=== PATIENT | female | born 1955 | race Caucasian/White ===

== ENCOUNTER → 2023-12-19 09:48 | Outpatient (REF) | payer OTHER, SELFPAY | LOC: HWRAD 09:48 | PROVIDERS: ATTENDING PHYSICIAN Family Medicine | DX: R10.32 Left lower quadrant pain (principal) | CPT/HCPCS: 74177; Q9967 ==

== ENCOUNTER 2024-06-04 11:05 | Emergency (ER) | payer OTHER, SELFPAY ==
[2024-06-04 11:07] VITALS: BP 110/67
--- NOTE | 2024-06-04 11:32 | ED.GENMED ---
History of Present Illness
General
Chief Complaint: Abdominal Symptoms
Source: patient
Time Seen by Provider: 06/04/24 11:12
History of Present Illness
History of Present Illness:
69yoF with a history of hypertension, hyperlipidemia, SVT, and anxiety presenting for evaluation of abdominal pain. She started with pain in her lower abdomen 3 days ago. Pain has been constant and is gradually worsening. Pain is mainly localized to
the suprapubic region and radiates to the RLQ. She also reports some nausea and feels constipated. She had a small bowel movement yesterday. She denies any fevers, chills, vomiting, diarrhea, dysuria. She was seen by her PCP today and was sent to
the ED for a CT scan.
Patient has a history of breast cancer and underwent autologous breast reconstruction in 1998 using the rectus abdominis muscle. She had a fall in December of this year and started to have bleeding from her abdomen. She underwent CT scan which showed a
hematoma. She continued to have intermittent bleeding which was thought to be from a fistula. She has been on intermittent antibiotics over the past few months. She was seen by a plastic surgeon who thought that the mesh from her prior surgery may
be breaking down. The plan was for patient to be on antibiotics (cefadroxil) for 6 weeks and reassess. If not improvement, she may need surgery. She has an appointment scheduled on 06/15/24 with another plastic surgeon for a second opinion.
Phy Exam
General Physical Exam
General Presentation: well appearing and no apparent distress
General age: appears stated age
General Skin: warm and dry
General Habitus: normal
General Mental: alert
ENT Exam
ENT Exam: normocephalic
Pulmonary Exam
Pulmonary Exam: no respiratory distress
Gastrointestinal Exam
Gastrointestinal Exam: soft, non distended and other (+Tenderness to suprapubic and RLQ regions. Abdomen soft, non-distended. No rebound or guarding. )
Neurological Exam
Neurological Exam: alert
Marisela Coma Scale
Eye Opening: Spontaneous
Verbal Response: Oriented
Motor Response: Obeys Commands
GCS Total Score: 15
Skin Exam
Skin Exam: normal color and warm/dry
Psychiatric Exam
Psychiatric Exam: normal mood/affect
Course
Orders/Labs/Results
Orders:
Orders
06/04/24 11:33
CT Abd/pel W Iv And Oral Contr Urgent
Comment:
Reason For Exam: Suprapubic, RLQ pain
Iohexol [Omnipaque] See Protocol PO NOW STA
06/04/24 11:52
Complete Blood Count/With Diff Urgent
Comprehensive Metabolic Panel Urgent
Lipase Urgent
Manual Differential Urgent
06/04/24 11:53
Urinalysis Reflex To Culture Urgent
Date Specimen was Collected: 06/04/24
Time Specimen was Collected: 11:51
Abnormal Lab Results
06/04/24
11:52
Hct 36.5 L %
(37.0-47.0)
Monocytes (Manual) 11 H %
(2-9)
Glucose 105 H mg/dl
(70-99)
06/04/24 11:52
06/04/24 11:52
Vital Signs
Initial and Last Documented VS:
Initial Vital Signs
Temp Pulse Resp BP Pulse Ox
98.2 F 79 16 110/67 98
06/04/24 11:07 06/04/24 11:07 06/04/24 11:07 06/04/24 11:07 06/04/24 11:07
Last Documented Vital Signs
Temp Pulse Resp BP Pulse Ox
98.2 F 74 12 133/78 99
06/04/24 11:07 06/04/24 15:28 06/04/24 15:28 06/04/24 15:28 06/04/24 15:28
MDM/Problems Addressed
Differential Diagnosis Includes:
69yoF here with lower abd pain x 3 days. Sent here by PCP for a CT scan. Currently on abx x 6 weeks for a possible abdominal fistula. She is afebrile and hemodynamically stable. She is well-appearing in no acute distress. No signs of peritonitis
on abdominal exam. Differential diagnosis includes but is not limited to: Appendicitis, colitis, diverticulitis, UTI, nonspecific abdominal pain
Initial ED plan: Check abdominal labs, UA, and CT abdomen with IV/PO contrast.
*Critical Care Note
Total Time (30-74mins, 75-104mins- exclusive of procedures): Not Applicable
Update Note
Update Note:
Labs overall unremarkable including normal white count, renal function, and LFTs. UA bland without signs of infection. CT abdomen shows mild mesenteric inflammatory changes adjacent to the sigmoid colon, may be related to mild diverticulitis or
sigmoid colitis. Patient already on a 6-week course of cefadroxil. Will add on Flagyl for anaerobic coverage. Supportive care discussed including clear liquid diet. She was advised to follow-up closely with her PCP. Strict ED return precautions
discussed including severe pain and fevers. She expressed understanding and is agreeable to plan. She was discharged in stable condition.
ED Attending Note
-
Portions of this chart may have been created with voice recognition software.� Occasional wrong word or��sound alike� substitutions may have occurred due to the inherent limitations of voice recognition software.
Discharge Plan
Departure
Patient Disposition: Home (Routine Discharge)
Date of Disposition: 06/04/24
Time of Disposition: 15:12
Patient with high blood pressure during this ER visit?: No
Discharge Problem:
Acute diverticulitis
Instructions: Diverticulitis (DC)
Prescriptions:
New
metronidazole 500 mg tablet
500 mg PO Q8H Qty: 30 0RF
Referrals:
Jared Moore MD [Family Provider] -
Activity Restrictions/Additional Instructions:
Take Flagyl as prescribed. Do not drink alcohol while on this antibiotic. Eat a clear liquid diet until pain improves.
Please follow-up with your family doctor next week. Return to the ER with any worsening symptoms, severe pain, fevers.
Interventions
Interventions:
*Risk Screen - Suicide Last Done: 06/04/24 11:07
*General Assessment Last Done: 06/04/24 11:45
*Neglect/Abuse Screening Last Done: 06/04/24 11:07
ED- Fall Risk Assessment Last Done: 06/04/24 11:45
*Nursing Disposition Last Done: 06/04/24 15:28
SG-Xmltfj-Afxxpvdndc Assessment Last Done: 06/04/24 11:45
Discharge Date and Time
Discharge Date/Time: 06/04/24 15:32
Print Language: NIUEAN
[2024-06-04] MEDS: OMNIPAQUE 50 ML PO (11:45)
[2024-06-04 12:00] VITALS: BP 115/67
[2024-06-04 12:05] LABS: Urine Albumin Negative (Neg - Trace); Urine Bilirubin Negative (Negative); Urine Character Clear (Clear); Urine Color Yellow; Urine Glucose Negative (Negative); Urine Ketone Negative (Negative); Urine Leukocyte Negative (Negative); Urine Nitrite Negative (Negative); Urine Occult Blood Negative (Negative); Urine Specific Gravity 1.015 (<1.030); Urine Urobilinogen Negative (Neg - 1+)
[2024-06-04 12:16] LABS: Hematocrit 36.5 % (37.0-47.0); Hemoglobin 12.6 g/dL (12.0-16.0); Mean Corp Hgb Conc. 34.5 g/dL (33.0-37.0); Mean Corpuscular Hgb 29.5 pg (27.0-31.0); Mean Corpuscular Volume 85.5 fL (81.0-99.0); Mean Platelet Volume 9.4 fL (7.4-10.4); Platelet Count 207 10^3/uL (130-400); Red Blood Cell Count 4.27 10^6/uL (4.20-5.40); Red Cell Dist. Width 12.3 % (11.5-14.5); White Blood Cell Count 6.6 10^3/uL (4.8-10.8)
[2024-06-04 12:47] LABS: ALT (SGPT) 21 U/L (0-35); AST (SGOT) 22 U/L (14-36); Albumin 4.2 g/dl (3.5-5.0); Alkaline Phosphatase 93 U/L (38-126); Blood Urea Nitrogen 16 mg/dl (7-17); Calcium 9.1 mg/dl (8.4-10.2); Carbon Dioxide 23 mmol/L (22-30); Chloride 104 mmol/L (98-107); Glucose 105 mg/dl (70-99); Lipase 65 U/L (23-300); Potassium 4.4 mmol/L (3.5-5.1); Sodium 139 mmol/L (135-145); Total Bilirubin 0.2 mg/dl (0.2-1.3); Total Protein 6.7 g/dl (6.3-8.2); eGFR > 60.00
[2024-06-04 12:50] LABS: Atypical Lymphocytes 6 %; Band Neutrophils 2 % (0-3); Lymphocytes 21 % (20-51); Monocytes 11 % (2-9); Segmented Neutrophils 60 % (42-75)
[2024-06-04 12:51] LABS: Normal RBC Morphology Yes; Platelets Checked Yes; Total Cells Counted 100
[2024-06-04 14:35] VITALS: BP 120/74
[2024-06-04 15:28] VITALS: BP 133/78
== END 2024-06-04 15:32 | disposition home or self-care (01) ==
LOC: EMR 11:05
PROVIDERS: Physician Assistant; EMERGENCY PHYSICIAN Emergency Medicine; FAMILY PHYSICIAN Family Medicine
DX: K57.32 Diverticulitis of large intestine without perforation or abscess without bleeding (principal); I10 Essential (primary) hypertension; E78.5 Hyperlipidemia, unspecified; I47.10 Supraventricular tachycardia, unspecified; F41.9 Anxiety disorder, unspecified; Z85.3 Personal history of malignant neoplasm of breast
CPT/HCPCS: 99284; 74177; 80053; 81003; 83690; 85025; Q9967

== ENCOUNTER 2024-06-06 20:11 | Emergency (ER) | payer OTHER, SELFPAY ==
[2024-06-06 20:15] VITALS: BP 146/90
[2024-06-06 20:51] VITALS: BMI 30.2
[2024-06-06 20:52] VITALS: BP 122/54
--- NOTE | 2024-06-06 21:51 | ED.GENMED ---
History of Present Illness
General
Chief Complaint: Allergic Reaction
Source: patient
Exam Limitations: none
Time Seen by Provider: 06/06/24 20:43
History of Present Illness
History of Present Illness:
Patient with a itchy rash to both legs. Started in the last 24 hours. Started Flagyl for presumed diverticulitis. Has been on a cephalosporin prolonged for a mesh abdominal wall issue. No shortness of breath no trouble breathing or swallowing.
Had some chest tightness but she felt this was low related to her anxiety.
Past History
Past History
ED Past Medical History: Arrthythmia and HTN
ED Past Surgical History: and Gynecological
Review of Systems
Review of Systems
All Other Systems: Not applicable
Constitutional: Denies fever or chills
ABD/GI: Denies abdominal pain
Phy Exam
Physical Exam
Physical Exam:
GENERAL: Alert and oriented in no apparent distress
EYE: Orbits normal.
NECK: Supple, no significant adenopathy.
ENT: Pharynx without erythema airway clear
CARDIAC: Regular rate and rhythm without any obvious murmurs.
LUNGS: Clear breath sounds,normal
ABDOMEN: Soft, without focal tenderness or distention
NEUROLOGICAL: Alert and oriented , grossly non-focal
SKIN: Warm and dry, mild maculopapular rash to the lower extremities. No petechia or purpura
MUSCULOSKELETAL: No edema,no deformity.Good color
PSYCH: Normal and appropriate interaction.
Course
Orders/Labs/Results
Orders:
Orders
06/06/24 20:27
Electrocardiogram (*1) Urgent
Reason for Study: Chest Pain
EKG- Treatment ONCE
Vital Signs
Initial and Last Documented VS:
Initial Vital Signs
Temp Pulse Resp BP Pulse Ox
98.4 F 99 18 146/90 97
06/06/24 20:15 06/06/24 20:15 06/06/24 20:15 06/06/24 20:15 06/06/24 20:15
Last Documented Vital Signs
Temp Pulse Resp BP Pulse Ox
99.3 F 88 18 122/54 95
06/06/24 20:52 06/06/24 20:52 06/06/24 20:52 06/06/24 20:52 06/06/24 20:52
MDM/Problems Addressed
Differential Diagnosis Includes:
Patient with a nonspecific likely allergic rash to her legs. Unlikely to be from the cephalosporin. She has been on that for weeks. She did just start the Flagyl. CT scan was reviewed and there is a nonspecific mesenteric inflammation. Her
abdomen is nontender. At this time we will hold Flagyl continue H1 natalie that she takes at home. Add Pepcid. Will hold on steroids. No indication for epinephrine. This slight chest tightness seem to be very anxiety related. EKG is unchanged.
No indication for troponin. Discharged to follow-up
*Pulse Oximetry
Patient hypoxic: no
*EKG
Interpreted by ED Provider?: Yes
Interpretation: abnormal
Comparison EKG: no changes
Heart Rate: 86
Rate: normal
Rhythm: sinus
[place]: normal axis
Interval: normal interval
QRS Pattern: left bundle branch block
Ischemia: non-specific ST changes
*Critical Care Note
Total Time (30-74mins, 75-104mins- exclusive of procedures): Not Applicable
ED Attending Note
-
Portions of this chart may have been created with voice recognition software.� Occasional wrong word or��sound alike� substitutions may have occurred due to the inherent limitations of voice recognition software.
Discharge Plan
Departure
Patient Disposition: Home (Routine Discharge)
Date of Disposition: 06/06/24
Time of Disposition: 21:53
Patient with high blood pressure during this ER visit?: Yes
Discharge Problem:
Hives
Instructions: Hives (DC), BLOOD PRESSURE
Prescriptions:
No Action
metronidazole 500 mg tablet
500 mg PO Q8H Qty: 30 0RF
Referrals:
Jared Moore MD [Family Provider] - Follow up in 2-3 days
Activity Restrictions/Additional Instructions:
Continue taking your Padmaja
Add Pepcid for the next week or so as we discussed
Hold on the Flagyl for now
Return with spreading hives shortness of breath prolonged chest tightness etc.
Also would have to reconsider antibiotics if the abdominal issues recur but for now lets hold off
Interventions
Interventions:
*Risk Screen - Suicide Last Done: 06/06/24 20:15
*General Assessment Last Done: 06/06/24 20:15
*Neglect/Abuse Screening Last Done: 06/06/24 20:15
*ED COVID-19 Vaccine History Last Done: 06/06/24 20:51
ED- Cardiac Assessment Last Done: 06/06/24 20:54
ED- Pulmonary Assessment Last Done: 06/06/24 20:54
ED-Skin Assessment Last Done: 06/06/24 20:54
Discharge Date and Time
Print Language: DIVEHI
[2024-06-06 22:09] VITALS: BP 121/63
[2024-06-06] MEDS: PEPCID 20 MG PO (22:11)
== END 2024-06-06 22:19 | disposition home or self-care (01) ==
LOC: EMR 20:11
PROVIDERS: EMERGENCY PHYSICIAN Emergency Medicine; FAMILY PHYSICIAN Family Medicine
DX: L50.0 Allergic urticaria (principal); I10 Essential (primary) hypertension
CPT/HCPCS: 99283; 93005

== ENCOUNTER 2024-06-10 14:38 | Emergency (ER) | payer OTHER, SELFPAY ==
[2024-06-10] VITALS (8 sets, daily range): BP systolic 95–146; BP diastolic 44–75; BMI 30.2
[2024-06-10 15:20] LABS: % Basophils 0.4 % (0-2); % Eosinophils 0.7 % (0-6); % Immature Granulocytes 0.2 % (0-0.5); % Lymphocytes 34.3 % (20.5-51.1); % Monocytes 11.1 % (1.7-9.3); % Neutrophils 53.3 % (42.2-75.2); Absolute Eosinophils 0.1 10^3/uL (0-0.7); Absolute Lymphocytes 2.8 10^3/uL (1.2-3.4); Absolute Monocytes 0.9 10^3/uL (0.1-0.6); Absolute Neutrophils 4.3 10^3/uL (1.4-6.5); Hematocrit 37.4 % (37.0-47.0); Mean Corp Hgb Conc. 34.8 g/dL (33.0-37.0); Mean Corpuscular Hgb 29.7 pg (27.0-31.0); Mean Corpuscular Volume 85.6 fL (81.0-99.0); Mean Platelet Volume 9.4 fL (7.4-10.4); Nucleated Red Blood Cells % 0 %; Platelet Count 289 10^3/uL (130-400); Red Blood Cell Count 4.37 10^6/uL (4.20-5.40); Red Cell Dist. Width 12.2 % (11.5-14.5)
[2024-06-10 15:32] LABS: ALT (SGPT) 53 U/L (0-35); AST (SGOT) 36 U/L (14-36); Albumin 4.8 g/dl (3.5-5.0); Alkaline Phosphatase 117 U/L (38-126); Blood Urea Nitrogen 20 mg/dl (7-17); Calcium 10.1 mg/dl (8.4-10.2); Carbon Dioxide 25 mmol/L (22-30); Chloride 103 mmol/L (98-107); Glucose 99 mg/dl (70-99); Lipase 83 U/L (23-300); Potassium 4.9 mmol/L (3.5-5.1); Sodium 140 mmol/L (135-145); Total Bilirubin 0.3 mg/dl (0.2-1.3); Total Protein 7.4 g/dl (6.3-8.2)
--- NOTE | 2024-06-10 16:39 | ED.GENMED ---
History of Present Illness
General
Chief Complaint: Rectal Bleeding
Source: patient
Time Seen by Provider: 06/10/24 16:14
History of Present Illness
History of Present Illness:
69-year-old female presents to the emergency room complaining of abdominal discomfort, bloody stool. Patient was seen here about a week ago for abdominal pain. She had a CAT scan which showed some inflammatory changes in the mesentery suggestive
of diverticulitis. Patient has been taking oral cephalosporin for several weeks for his possible mesh infection and therefore Flagyl was added to this regiment. Patient stopped the Flagyl after 5 days due to a rash. Patient felt better for couple
days but then began having more abdominal discomfort, constipation. She did finally have bowel movements and then began having bloody stool. There was little normal stool but mostly blood and mucus. No fever or chills.
Past History
Past History
ED Past Medical History: Arrthythmia and HTN
ED Past Surgical History: and Gynecological
Phy Exam
Physical Exam
Physical Exam:
General: Awake, Alert, Oriented X3. No acute distress.
Vitals: unremarkable
Head: Atraumatic
Eyes: Pupils equal, EOMI
Throat: Airway intact, no exudates
Neck: Trachea midline
Lungs: Clear and equal b/l
Heart: Regular rate, no murmurs
Abd: Soft, bilateral lower quadrant abdominal, No pulsatile mass
Neuro: Nonfocal
Skin: Warm, dry, no rash
Extremities: pulses equal b/l, no edema
Course
Orders/Labs/Results
Orders:
Orders
06/10/24 15:08
Type+Screen Urgent
Complete Blood Count/With Diff Urgent
06/10/24 15:09
Comprehensive Metabolic Panel Urgent
Lipase Urgent
06/10/24 16:38
0.9% Sodium Chloride 1000 ml [Nss] 1,000 ml IV BOLUS
06/10/24 16:39
CT Abd/pelvis W Iv Cont Urgent
Comment:
Reason For Exam: increasing pain, bloody stool
06/10/24 16:53
ABO2 Urgent
BBK Wristband Number:
Associate notified that ABO2 has been ordered: [id number]
Date: 06/10/24
Time: 15:26
Medical Office Worker ID: [id number]
Abnormal Lab Results
06/10/24 06/10/24
15:08 15:09
Absolute Monos (auto) 0.9 H 10^3/uL
(0.1-0.6)
Monocytes % 11.1 H %
(1.7-9.3)
BUN 20 H mg/dl
(7-17)
Creatinine 1.2 H mg/dL
(0.6-1.0)
ALT 53 H U/L
(0-35)
06/10/24 15:08
06/10/24 15:09
Vital Signs
Initial and Last Documented VS:
Initial Vital Signs
Temp Pulse Resp BP Pulse Ox
98.2 F 70 16 100/75 98
06/10/24 14:48 06/10/24 14:48 06/10/24 14:48 06/10/24 14:48 06/10/24 14:48
Last Documented Vital Signs
Temp Pulse Resp BP Pulse Ox
98.2 F 75 19 129/45 97
06/10/24 14:48 06/10/24 20:45 06/10/24 20:45 06/10/24 20:00 06/10/24 20:15
MDM/Problems Addressed
Differential Diagnosis Includes:
Diverticular bleeding, AVM, colitis, anal fissure or hemorrhoid
MDM/Problems Addressed:
Patient's presentation is of couple episodes of bloody stool. Her abdominal exam is benign. Labs are reassuring. Given her recent ER visit for diverticulitis or colitis repeat imaging was obtained. Changes have improved and certainly have not
progressed. Suspect the blood is from some colonic irritation. She did not have any bloody bowel movements after several hours here in the emergency room. Hemoglobin is unchanged. Patient stable for discharge home. Recommend GI follow-up.
Continue brat diet.
*Radiology
Radiology exam reviewed: radiology read reviewed
*Pulse Oximetry
Patient hypoxic: no
*Critical Care Note
Total Time (30-74mins, 75-104mins- exclusive of procedures): Not Applicable
ED Attending Note
-
Portions of this chart may have been created with voice recognition software.� Occasional wrong word or��sound alike� substitutions may have occurred due to the inherent limitations of voice recognition software.
Discharge Plan
Departure
Patient Disposition: Home (Routine Discharge)
Date of Disposition: 06/10/24
Time of Disposition: 20:44
Patient with high blood pressure during this ER visit?: Yes
Condition: Good
Discharge Problem:
Colitis, Bloody stool
Instructions: Bloody Stools, Adult (DC)
Prescriptions:
No Action
acetaminophen [Tylenol] 325 mg Tablet
650 mg PO Q6HPRN PRN (Reason: mild pain)
atorvastatin 10 mg Tablet
10 mg PO HS
diltiazem HCl 240 mg Capsule,Extended Release 24 Hr
240 mg PO DAILY
fexofenadine [Padmaja] 180 mg Tablet
180 mg PO HS
cefadroxil 500 mg Capsule
500 mg PO BID
levothyroxine 125 mcg Tablet
125 mcg PO DAILY
lisinopril 10 mg Tablet
10 mg PO HS
docusate sodium [Colace] 100 mg Capsule
100 mg PO HSPRN PRN (Reason: constipation)
montelukast 10 mg Tablet
10 mg PO HS
lorazepam 1 mg Tablet
1 mg PO HS
lorazepam 1 mg Tablet
1 mg PO BIDPRN PRN (Reason: panic attack)
escitalopram oxalate 10 mg Tablet
10 mg PO DAILY
Rx Instructions:
take with 5mg for total of 15mg
bupropion HCl 300 mg Tablet Extended Release 24 Hr
300 mg PO DAILY
Rx Instructions:
take with 150mg tab for total of 450mg
bupropion HCl 150 mg Tablet Extended Release 24 Hr
150 mg PO DAILY
Rx Instructions:
take with 300mg for total of 450mg
escitalopram oxalate 5 mg Tablet
5 mg PO DAILY
Rx Instructions:
take with 10mg for total of 15mg
Align 4 mg Capsule
4 mg PO HS
bepotastine besilate 1.5 % Drops
1 drp BOTH EYES BIDPRN PRN (Reason: allergies)
cholecalciferol (vitamin D3) [Vitamin D3] 25 mcg (1,000 unit) Tablet,Chewable
25 mcg PO HS
Referrals:
Kaveh Simon MD [Active] -
Jared Moore MD [Family Provider] -
Activity Restrictions/Additional Instructions:
I believe the bloody stools you passed were related to the inflammation of your colon. Continue taking the antibiotic you are taking but I do not believe we should add anything else to the mix. Stay on a brat diet for the next 24 to 48 hours and
then you can advance your diet. Return if you have any increase in the amount of blood you are passing. Follow-up with gastroenterology either at [facility] or call our GI doctors here whose number I have provided on these discharge instructions
Interventions
Interventions:
*Risk Screen - Suicide Last Done: 06/10/24 14:48
*General Assessment Last Done: 06/10/24 14:48
*Neglect/Abuse Screening Last Done: 06/10/24 14:48
*ED COVID-19 Vaccine History Last Done: 06/10/24 14:48
*Nursing Disposition Last Done: 06/10/24 21:20
PG-Hgqasf-Mthksxneye Assessment Last Done: 11/27/24 17:32
ED- Cardiac Assessment Last Done: 06/10/24 17:32
ED- Pulmonary Assessment Last Done: 06/10/24 17:32
Discharge Date and Time
Discharge Date/Time: 06/10/24 21:21
Print Language: DIVEHI
[2024-06-10] MEDS: NSS 1000 IV (17:27)
== END 2024-06-10 21:21 | disposition home or self-care (01) ==
LOC: EMR 14:38
PROVIDERS: Emergency Medicine; EMERGENCY PHYSICIAN Emergency Medicine; FAMILY PHYSICIAN Family Medicine
DX: K52.9 Noninfective gastroenteritis and colitis, unspecified (principal); I10 Essential (primary) hypertension
CPT/HCPCS: 99284; 74177; 80053; 83690; 85025; 86850; 86900; 86901; Q9967

== ENCOUNTER → 2024-07-22 11:14 | Outpatient (REF) | payer OTHER, SELFPAY | LOC: DHCBC/DCA 11:14 | PROVIDERS: ATTENDING PHYSICIAN Nurse Practitioner; FAMILY PHYSICIAN Family Medicine | DX: R06.02 Shortness of breath (principal); R07.89 Other chest pain | CPT/HCPCS: 78452; 93017; A9500; J2785 ==

== ENCOUNTER → 2024-07-24 07:18 | Outpatient (REF) | payer OTHER, SELFPAY | LOC: HWRCS 07:18 | PROVIDERS: ATTENDING PHYSICIAN Nurse Practitioner; FAMILY PHYSICIAN Family Medicine | DX: R06.02 Shortness of breath (principal); R07.89 Other chest pain | CPT/HCPCS: 93306 ==

== ENCOUNTER 2024-08-07 01:19 | Emergency (ER) | payer OTHER, SELFPAY ==
[2024-08-07 01:25] VITALS: BP 175/75
[2024-08-07 02:00] LABS: % Basophils 0.5 % (0-2); % Eosinophils 3.2 % (0-6); % Immature Granulocytes 0.4 % (0-0.5); % Lymphocytes 17.3 % (20.5-51.1); % Monocytes 7.5 % (1.7-9.3); % Neutrophils 71.1 % (42.2-75.2); Absolute Basophils 0.1 10^3/uL (0-0.2); Absolute Eosinophils 0.5 10^3/uL (0-0.7); Absolute Immature Granulocytes 0.1 10^3/uL (0-0.05); Absolute Lymphocytes 2.4 10^3/uL (1.2-3.4); Absolute Monocytes 1.1 10^3/uL (0.1-0.6); Absolute Neutrophils 9.9 10^3/uL (1.4-6.5); Hematocrit 37.3 % (37.0-47.0); Hemoglobin 12.9 g/dL (12.0-16.0); Mean Corp Hgb Conc. 34.6 g/dL (33.0-37.0); Mean Corpuscular Hgb 29.3 pg (27.0-31.0); Mean Corpuscular Volume 84.8 fL (81.0-99.0); Mean Platelet Volume 8.9 fL (7.4-10.4); Nucleated Red Blood Cells % 0 %; Platelet Count 320 10^3/uL (130-400); Red Cell Dist. Width 12.1 % (11.5-14.5)
[2024-08-07 02:11] LABS: ALT (SGPT) 20 U/L (0-35); AST (SGOT) 23 U/L (14-36); Albumin 4.5 g/dl (3.5-5.0); Alkaline Phosphatase 109 U/L (38-126); Blood Urea Nitrogen 26 mg/dl (7-17); Calcium 9.6 mg/dl (8.4-10.2); Carbon Dioxide 19 mmol/L (22-30); Chloride 102 mmol/L (98-107); Glucose 134 mg/dl (70-99); Potassium 4.9 mmol/L (3.5-5.1); Sodium 135 mmol/L (135-145); Total Bilirubin 0.2 mg/dl (0.2-1.3); Total Protein 7.1 g/dl (6.3-8.2); eGFR 54.39
[2024-08-07 02:23] LABS: Troponin I < 0.012 ng/ml
[2024-08-07 04:53] VITALS: BMI 29.6
[2024-08-07 04:58] VITALS: BP 127/63
[2024-08-07 06:00] VITALS: BP 110/55
--- NOTE | 2024-08-07 06:16 | ED.GENMED ---
History of Present Illness
General
Chief Complaint: Blood Pressure Problem
Source: patient
Time Seen by Provider: 08/07/24 06:01
History of Present Illness
History of Present Illness:
69-year-old female presents to the emergency room complaining of fatigue and malaise as well as having some pain in her left arm last night. 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
a mastectomy and TRAM flap reconstruction. Patient states she was concerned that she could have 'a clot in her arm' or that her blood pressure was too high. The pain has resolved at the time of my evaluation. Patient denies any shortness of
breath, chest pain or chest pain with deep inspiration. She was able to ambulate the length of the hospital without shortness of breath. Patient states that her appetite has been decreased since the surgery. She has some lower abdominal pain but
has been able to stop oxycodone. She is only taking Tylenol for pain. No fever or chills.
Past History
Past History
ED Past Medical History: Arrthythmia and HTN
ED Past Surgical History: and Gynecological
Phy Exam
Physical Exam
Physical Exam:
General: Awake, Alert, Oriented X3. No acute distress.
Vitals: Moderately hypertensive on arrival but blood pressure has normalized
Head: Atraumatic
Eyes: Pupils equal, EOMI
Throat: Airway intact, no exudates
Neck: Trachea midline
Lungs: Clear and equal b/l
Heart: Regular rate, no murmurs
Abd: Soft, no upper abdominal tenderness, some tenderness at the surgical site, no pulsatile mass
Neuro: Nonfocal
Skin: Warm, dry, no rash
Extremities: pulses equal b/l, no edema
Course
Orders/Labs/Results
Orders:
Orders
08/07/24 01:30
EKG [Electrocardiogram (*1)] Urgent
Reason for Study: Chest Pain
Other Reason for Exam: no chest pain, + l arm pain
EKG- Treatment ONCE
08/07/24 01:45
Complete Blood Count/With Diff Urgent
Comprehensive Metabolic Panel Urgent
Troponin I Urgent
08/07/24 06:16
CR Chest - 2 Views Urgent
Comment:
Reason For Exam: chest/left arm pain
08/07/24 06:20
0.9% Sodium Chloride 500 ml [Nss] 500 ml IV BOLUS
Abnormal Lab Results
08/07/24
01:45
WBC 14.0 H 10^3/uL
(4.8-10.8)
Abs Immat Gran (auto) 0.1 H 10^3/uL
(0-0.05)
Absolute Neuts (auto) 9.9 H 10^3/uL
(1.4-6.5)
Absolute Monos (auto) 1.1 H 10^3/uL
(0.1-0.6)
Lymphocytes % 17.3 L %
(20.5-51.1)
Carbon Dioxide 19 L mmol/L
(22-30)
BUN 26 H mg/dl
(7-17)
Creatinine 1.1 H mg/dL
(0.6-1.0)
Glucose 134 H mg/dl
(70-99)
08/07/24 01:45
08/07/24 01:45
Vital Signs
Initial and Last Documented VS:
Initial Vital Signs
Temp Pulse Resp BP Pulse Ox
97.8 F 55 16 175/75 97
08/07/24 01:25 08/07/24 01:25 08/07/24 01:25 08/07/24 01:25 08/07/24 01:25
Last Documented Vital Signs
Temp Pulse Resp BP Pulse Ox
97.8 F 71 16 111/48 98
08/07/24 01:25 08/07/24 07:55 08/07/24 08:00 08/07/24 07:55 08/07/24 07:55
MDM/Problems Addressed
Differential Diagnosis Includes:
Congestive heart failure, uncontrolled hypertension, angina
MDM/Problems Addressed:
Patient presents with primary left arm pain and malaise. Though she did have a bit of an elevated pressure on arrival her pressure is normalized. She is asymptomatic at the time of my evaluation. Her labs show a white count of 14,000 which I
think is likely related to her recent surgery. Her chemistries reflect perhaps mild dehydration. Will provide a fluid bolus, instructed her to push the fluids. Her troponin is normal and her discomfort started last evening around 9 PM so I would
expect her to have a positive troponin at this discomfort was cardiac related. In addition the patient a stress test just about a week or 2 ago which did not show evidence for ischemia. My clinical suspicion for DVT or blood clot is extremely low.
She has no arm swelling to suggest an arm DVT. She does not have any clinical features really to suggest a PE as she is not tachycardic, does not have pleuritic chest pain. D-dimer will be helpful because she had recent surgery.
*Pulse Oximetry
Patient hypoxic: no
*EKG
Interpreted by ED Provider?: Yes
Interpretation: normal
Heart Rate: 73
Rate: normal
Rhythm: sinus
QRS Pattern: left bundle branch block
Ischemia: non-specific ST changes
*Coat Presser Interpretation
Rate: normal
Interpretation: normal
Rhythm: sinus
*Critical Care Note
Total Time (30-74mins, 75-104mins- exclusive of procedures): Not Applicable
ED Attending Note
-
Portions of this chart may have been created with voice recognition software.� Occasional wrong word or��sound alike� substitutions may have occurred due to the inherent limitations of voice recognition software.
Discharge Plan
Departure
Patient Disposition: Home (Routine Discharge)
Date of Disposition: 08/07/24
Time of Disposition: 08:30
Patient with high blood pressure during this ER visit?: Yes
Condition: Good
Discharge Problem:
Hypertension, Dehydration
Instructions: High Blood Pressure (DC), Dehydration in adults - ED discharge instructions
Prescriptions:
No Action
acetaminophen [Tylenol] 325 mg Tablet
650 mg PO Q6HPRN PRN (Reason: mild pain)
atorvastatin 10 mg Tablet
10 mg PO HS
diltiazem HCl 240 mg Capsule,Extended Release 24 Hr
240 mg PO DAILY
fexofenadine [Padmaja] 180 mg Tablet
180 mg PO HS
levothyroxine 125 mcg Tablet
125 mcg PO DAILY
lisinopril 10 mg Tablet
10 mg PO HS
docusate sodium [Colace] 100 mg Capsule
100 mg PO HSPRN PRN (Reason: constipation)
montelukast 10 mg Tablet
10 mg PO HS
lorazepam 1 mg Tablet
1 mg PO HS
lorazepam 1 mg Tablet
1 mg PO BIDPRN PRN (Reason: panic attack)
escitalopram oxalate 10 mg Tablet
10 mg PO DAILY
Rx Instructions:
take with 5mg for total of 15mg
bupropion HCl 300 mg Tablet Extended Release 24 Hr
300 mg PO DAILY
Rx Instructions:
take with 150mg tab for total of 450mg
bupropion HCl 150 mg Tablet Extended Release 24 Hr
150 mg PO DAILY
Rx Instructions:
take with 300mg for total of 450mg
escitalopram oxalate 5 mg Tablet
5 mg PO DAILY
Rx Instructions:
take with 10mg for total of 15mg
Align (B.infantis) 4 mg Capsule
4 mg PO HS
sulfamethoxazole-trimethoprim
1 tab PO Q12H
Referrals:
Jared Moore MD [Family Provider] -
Interventions
Interventions:
*Risk Screen - Suicide Last Done: 08/07/24 01:25
*General Assessment Last Done: 08/07/24 04:58
*Neglect/Abuse Screening Last Done: 08/07/24 04:58
ED- Fall Risk Assessment Last Done: 08/07/24 04:58
*ED COVID-19 Vaccine History Last Done: 08/07/24 04:58
ED- Cardiac Assessment Last Done: 08/07/24 04:58
ED- Neurological Assessment Last Done: 08/07/24 04:58
ED- Pulmonary Assessment Last Done: 08/07/24 04:58
Discharge Date and Time
Print Language: NEPALI
[2024-08-07] MEDS: NSS 500 IV (06:43)
[2024-08-07 07:00] VITALS: BP 103/29
[2024-08-07 07:55] VITALS: BP 111/48
== END 2024-08-07 08:42 | disposition home or self-care (01) ==
LOC: EMR 01:19
PROVIDERS: Emergency Medicine; EMERGENCY PHYSICIAN Emergency Medicine; FAMILY PHYSICIAN Family Medicine
DX: I10 Essential (primary) hypertension (principal); E86.0 Dehydration
CPT/HCPCS: 99285; 96360; 71046; 80053; 84484; 85025; 93005

== ENCOUNTER → 2024-09-22 10:41 | Outpatient (REF) | payer OTHER, SELFPAY ==
--- NOTE | 2024-09-22 11:11 | CARDSERVLU ---
Echocardiogram with Lumason completed after protocol screening completed. Allergies verified.
Patent IV site: __rt hand___
IV site flushed with 0.9% NaCl pre and post administration.
Diluted bolus method utilized to enhance visualization of ventricular dawkins.
Total volume given: ___3.0_ mL
Patient tolerated all procedures well without complications.
== END ==
LOC: RCS 10:41
PROVIDERS: ATTENDING PHYSICIAN Internal Medicine Cardiovascular Disease; FAMILY PHYSICIAN Family Medicine
DX: R06.02 Shortness of breath (principal)
CPT/HCPCS: 93308; Q9950

== ENCOUNTER 2024-11-10 06:25 | Day surgery (SDC) | payer OTHER, SELFPAY | END 2024-11-10 10:08 | disposition home or self-care (01) | LOC: GI 06:25 | PROVIDERS: ATTENDING PHYSICIAN Student in an Organized Health Care Education/Training Program | DX: K62.5 Hemorrhage of anus and rectum (principal); R93.3 Abnormal findings on diagnostic imaging of other parts of digestive tract; K57.30 Diverticulosis of large intestine without perforation or abscess without bleeding; D12.2 Benign neoplasm of ascending colon; K63.5 Polyp of colon; Z80.0 Family history of malignant neoplasm of digestive organs | CPT/HCPCS: 45385; 45380; 88305 ==

== ENCOUNTER 2025-03-30 06:25 | Day surgery (SDC) | payer OTHER, SELFPAY | END 2025-03-30 13:29 | disposition home or self-care (01) | LOC: GI 06:25 | PROVIDERS: ATTENDING PHYSICIAN Student in an Organized Health Care Education/Training Program | DX: Z12.11 Encounter for screening for malignant neoplasm of colon (principal); D12.3 Benign neoplasm of transverse colon; K63.5 Polyp of colon; K57.30 Diverticulosis of large intestine without perforation or abscess without bleeding; K62.1 Rectal polyp; K62.89 Other specified diseases of anus and rectum; Z86.0101 Personal history of adenomatous and serrated colon polyps; Z80.0 Family history of malignant neoplasm of digestive organs | CPT/HCPCS: 45385; 45380; 88305 ==